=== PATIENT | female | born 1990 | race Caucasian/White ===

== ENCOUNTER 2021-02-02 07:59 | Emergency (ER) | payer OTHER, SELFPAY ==
[2021-02-02 08:18] VITALS: BP 103/71; PULSE 67; RESP 14; TEMP 36.3; O2SAT 100
--- NOTE | 2021-02-02 08:49 | ED.LOWEXIN ---
HPI - Extremity Injury (Lower) General Chief Complaint: Extremity Injury, Lower Stated Complaint: ankle pain Time Seen by Provider: 02/02/21 08:17 Source: patient Mode of arrival: ambulatory Limitations: no limitations History of Present Illness HPI Narrative: 30-year-old female Patient complains of pain and swelling in the lateral area of her right ankle She notices that this is something that was a problem previously after running But yesterday she did some jumping type of exercise which made things worse She iced it and the swelling is decreased but it still sore and she has pain if she puts full weight on it or if she stands on tiptoes There was no other injury per se Related Data Allergies Allergy/AdvReac Type Severity Reaction Status Date / Time Penicillins Allergy Unknown Verified 02/02/21 08:20 Review of Systems Musculoskeletal: Musculoskeletal: Reports no additional musculoskeletal complaints and Reports arthralgias Neurologic: Denies focal weakness and Denies numbness Exam Const: General: alert Orientation/consciousness: patient oriented x3 Eyes: Conjunctivae: conjunctivae normal EOM: EOMs intact bilaterally Resp: Effort & Inspection: normal respiratory effort and not labored Neuro: General: patient oriented x3 Speech: normal speech Extrem: General: normal to inspection and no edema Other: There is no swelling, no deformity and no ecchymosis There is mild tenderness over the course of the peroneal tendon posterior to the lateral malleolus Course Vital Signs Vital signs: Vital Signs Temperature 36.3 C L 02/02/21 08:18 Pulse Rate 67 02/02/21 08:18 Respiratory Rate 14 02/02/21 08:18 Blood Pressure 103/71 02/02/21 08:18 Pulse Oximetry 100 02/02/21 08:18 Temperature 36.3 C L 02/02/21 08:18 Pulse Rate 67 02/02/21 08:18 Respiratory Rate 14 02/02/21 08:18 Blood Pressure 103/71 02/02/21 08:18 Pulse Oximetry 100 02/02/21 08:18 Discharge Plan Discharge Clinical Impression: Peroneal tendinitis of right lower leg Patient Disposition: Home, Self-Care Condition: Stable Instructions: Safe Use of NSAIDs (ED) Additional Instructions: PERONEAL TENDINOSIS The peroneal tendons are on the outside of the ankle just behind the bone called the fibula. Peroneal tendinosis is the name for the enlargement, thickening, and swelling of these tendons. This usually occurs with overuse, such as a repetitive activity that irritates the tendon over long periods of time. Symptoms People with peroneal tendinosis typically have tried a new exercise or markedly increased their activities. Characteristic activities include marathon running or others that require repetitive use of the ankle. Patients usually have pain around the back and outside of the ankle. There usually is no history of a specific injury. Causes Improper training or rapid increases in training and poorly fitting shoes can lead to peroneal tendinosis. Also, patients who have high arches may be more susceptible because their heel is turned inwards slightly, which requires the peroneal tendons to work harder to turn the ankle to the outside. The harder the tendons work, the more likely patients are to develop tendinosis. Anatomy Tendons connect muscle to bone and allow them to exert their force across the joints that separate bones. Ligaments, on the other hand, connect bone to bone. There are two peroneal tendons that run along the back of the fibula. The first is called the peroneus brevis. The term brevis implies short. It is called this because it has a shorter muscle and starts lower in the leg. It then runs down around the back of the bone called the fibula on the outside of the leg and connects to the fifth metatarsal on the side of the foot. The peroneus longus takes its name because it has a longer course. It starts higher on the leg and runs all the way underneath the foot to connect to the first metatarsa
[2021-02-02 09:16] VITALS: BP 108/65; PULSE 70; RESP 12; O2SAT 99
== END 2021-02-02 09:17 | disposition home or self-care (01) ==
PROVIDERS: Emergency Provider Emergency Medicine
DX: M76.71 Peroneal tendinitis, right leg (principal)
CPT/HCPCS: 99282